=== PATIENT | female | born 1985 | race Two or more races ===

== ENCOUNTER → 2025-06-19 | Outpatient (CLI) | payer BC, MEDICAID, SELFPAY ==
--- NOTE | 2025-06-19 10:01 | XR_ITS ---
Examination: Cervical spine 4 views Technique one AP, lateral, swimmer's lateral, coned AP odontoid cervical spine 4 views Date and time: June 19, 2025 1005 hours INDICATIONS: Neck pain beginning 2 months ago. FINDINGS: Adequate alignment cervical vertebral bodies. No cervical fracture. Intact odontoid. No cervical disc narrowing IMPRESSION: Negative examination
--- NOTE | 2025-06-19 10:01 | XR_ITS ---
Examination: Shoulder bilateral, 6 views Technique: Shoulder AP internal rotation, AP external rotation, Y view shoulder each shoulder total 6 views Exam date and time :June 19, 2025 1005 hours INDICATIONS: Bilateral shoulder pain beginning 2 months ago. FINDINGS: No shoulder fractures or dislocations Mild bilateral narrowing glenohumeral joints Mild bilateral osteoarthritis acromioclavicular joints Negative for shoulder calcific tendinitis IMPRESSION: Mild bilateral narrowing glenohumeral joints
[2025-06-19 11:41] LABS: Glucose Estimated Average 120 mg/dL (80-131); Hemoglobin A1C 5.8 % Hgb (4.8-6.0)
[2025-06-19 11:42] LABS: Basophils # (Auto) 0.1 Thou/mm3 (0.0-0.2); Basophils % (Auto) 1 % (0-2.5); Eosinophils # (Auto) 0.2 Thou/mm3 (0.0-0.5); Eosinophils % (Auto) 5 % (0-10); Hematocrit 39.9 % (36.0-46.0); Hemoglobin 13.2 g/dL (12.0-16.0); Immature Granulocytes Auto 0.02 Thou/mm3 (0.00-0.00); Lymphocytes # (Auto) 1.9 Thou/mm3 (1.0-4.8); Lymphocytes % (Auto) 38 % (10-50); Mean Corpuscular HGB Conc 33.1 g/dl (31.0-37.0); Mean Corpuscular Hemoglobin 30.8 pg (25.0-35.0); Mean Corpuscular Volume 93 fL (80-100); Monocytes # (Auto) 0.4 Thou/mm3 (0.0-0.8); Monocytes % (Auto) 7 % (0-12); Neutrophils # (Auto) 2.5 Thou/mm3 (1.8-7.7); Neutrophils % (Auto) 49 % (37-80); Nucleated Red Blood Cell # 0.00 Thou/mm3 (0.00-0.00); Nucleated Red Blood Cell % 0 /100 WBC (0); Platelet Count 379 Thou/mm3 (140-440); RDW Standard Deviation 42.9 fL (36.4-46.3); Red Blood Count 4.28 Miln/mm3 (4.00-5.20); White Blood Count 5.1 Thou/mm3 (3.6-11.0)
[2025-06-19 11:45] LABS: Follicle Stimulating Hormone 7.93 mIU/mL (See Note); Vitamin B12 1377 pg/mL (211-911); Vitamin D 25 Hydroxy Total 19.4 ng/mL (7.3-40.2)
[2025-06-19 11:49] LABS: Alanine Aminotransferase 61 U/L (10-49); Albumin, Serum 4.3 gm/dL (3.5-5.0); Albumin/Globulin Ratio 1.5 (1.2-2.2); Alkaline Phosphatase 84 U/L (46-116); Anion Gap 10 (7-16); Aspartate Amino Transferase 51 U/L (0-34); BUN/Creatinine Ratio 16 Ratio (12-20); Bilirubin,Total 0.4 mg/dL (0.3-1.2); Blood Urea Nitrogen 11 mg/dL (9-23); Calcium 8.8 mg/dL (8.3-10.6); Calcium (Corrected) 8.8 mg/dL (8.5-10.1); Carbon Dioxide 24.5 mMol/L (20.0-31.0); Cardiac Risk Estimate 2.9 RATIO (3.7-5.6); Chloride 106 mMol/L (98-107); Cholesterol 189 mg/dL (132-200); Creatinine (Component) 0.7 mg/dL (0.6-1.3); Free T4 (Free Thyroxine) 1.03 ng/dL (0.89-1.76); Globulin 2.8 gm/dL (2.3-3.5); Glucose 95 mg/dL (74-106); HDL Cholesterol 65 mg/dL (40-60); LDL Cholesterol,Calculated 94 mg/dL (0-130); Osmolality,Calculated 278 (275-295); Potassium 4.4 mMol/L (3.4-5.1); Sodium 140 mMol/L (136-145); Thyroid Stimulating Hormone 1.12 uIU/mL (0.55-4.78); Total Protein 7.1 gm/dL (5.7-8.2); Triglycerides 149 mg/dL (30-150); Uric Acid 4.1 mg/dL (3.1-7.8); eGFR > 60 See Note
[2025-06-19 12:04] LABS: Sed Rate (ESR) 9 mm/hr (0-20)
[2025-06-19 15:16] LABS: RA Screen Negative (Negative)
[2025-06-26 06:24] LABS: ANA Screen, IFA POSITIVE (NEGATIVE); ANA Titer 1:1280 titer; DHEA Sulfate* 86 mcg/dL (19-231); Luteinizing Hormone* 4.9 mIU/mL
== END | disposition home or self-care (01) ==
LOC: CDIM 09:21 → COPL 10:40
PROVIDERS: PCP Physician Assistant; Referring Provider Physician Assistant; Visit Provider Radiology Diagnostic Radiology
DX: M54.2 Cervicalgia (principal); M25.812 Other specified joint disorders, left shoulder; M25.811 Other specified joint disorders, right shoulder; N93.9 Abnormal uterine and vaginal bleeding, unspecified; R53.83 Other fatigue; Z13.220 Encounter for screening for lipoid disorders
CPT/HCPCS: 36415; 72040; 73030; 80053; 80061; 82306; 82607; 82627; 83001; 83002; 83036; 84439; 84443; 84550; 85025; 85652; 86038; 86430

== ENCOUNTER → 2025-07-09 | Outpatient (CLI) | payer BC, MEDICAID, SELFPAY ==
[2025-07-09 15:08] LABS: Hepatitis A Antibody IgM Non Reactive (Non React); Hepatitis B Core Antibody IgM Non Reactive (Non React); Hepatitis B Surface Antigen Non Reactive (Non React); Hepatitis C Antibody Non Reactive (Non React)
[2025-07-16 06:34] LABS: Folate, RBC* 617 ng/mL RBC (>280); Homocysteine* 9.4 umol/L (< OR = 11.0); Methylmalonic Acid, GC/MS/MS* 91 nmol/L (55-335)
== END | disposition home or self-care (01) ==
PROVIDERS: PCP Physician Assistant; Referring Provider Physician Assistant; Visit Provider Physician Assistant
DX: R74.8 Abnormal levels of other serum enzymes (principal); R79.89 Other specified abnormal findings of blood chemistry
CPT/HCPCS: 36415; 80074; 82747; 83090; 83921

== ENCOUNTER → 2025-08-07 | Outpatient (CLI) | payer BC, MEDICAID, SELFPAY ==
--- NOTE | 2025-08-07 14:30 | XR_ITS ---
Examination: Ultrasound soft tissue extremity left shoulder TECHNIQUE: Grayscale sonographic images soft tissue left shoulder Date and time: August 07, 2025 1442 hours INDICATIONS: Palpable lump in the left shoulder and swelling beginning one month ago. FINDINGS: No cystic or solid mass depicted IMPRESSION: No cystic or solid mass depicted
== END | disposition home or self-care (01) ==
LOC: CDIM 14:18
PROVIDERS: PCP Physician Assistant; Referring Provider Physician Assistant; Visit Provider Physician Assistant
DX: R22.32 Localized swelling, mass and lump, left upper limb (principal)
CPT/HCPCS: 76882

== ENCOUNTER → 2025-08-24 | Outpatient (CLI) | payer BC, MEDICAID, SELFPAY ==
--- NOTE | 2025-08-24 11:00 | XR_ITS ---
Examination: Abdomen sonogram, Limited Date and time of exam: August 24, 2025, 1116 hours INDICATIONS: Elevated liver enzymes on laboratory examination June 19, 2025. Technique: Real-time chin scale transabdominal sonographic images of the upper abdomen obtained. Findings: Contracted gallbladder, gallbladder wall is thickened 0.5 cm no stones Common bile duct 0.4 cm Pancreatic head 2.5 cm Liver 15.3 cm solid lesion in the mid right lobe the liver 3.2 x 1.8 x 2.0 cm Normal hepatopedal portal venous flow Patent IVC IMPRESSION: Recommend repeat gallbladder study with better fasting Recommend MRI abdomen follow-up pre and postcontrast to assess the 3.2 x 1.8 x 2.0 cm right lobe liver lesion, differential including hepatic metastasis
== END | disposition home or self-care (01) ==
PROVIDERS: PCP Physician Assistant; Referring Provider Physician Assistant; Visit Provider Physician Assistant
DX: K76.9 Liver disease, unspecified (principal)
CPT/HCPCS: 76705

== ENCOUNTER 2025-11-14 18:58 | Emergency (ER) | payer BC, MEDICAID, SELFPAY ==
[2025-11-14 18:59] VITALS: BMI 26.9
[2025-11-14 19:40] VITALS: BP 127/85; PULSE 62; RESP 18; TEMP 36.6; O2SAT 98
--- NOTE | 2025-11-14 19:44 | XR_ITS ---
EXAMINATION: Cervical spine 3 views TECHNIQUE: AP lateral coned AP odontoid cervical spine 3 views Date and time: November 14, 2025, 1958 hours INDICATIONS: Neck pain beginning 1 week ago. FINDINGS: Reversal normal cervical lordosis which may relate to muscle spasm No acute fracture Intact odontoid No cervical disc narrowing IMPRESSION: No cervical fracture, no cervical disc narrowing
--- NOTE | 2025-11-14 20:50 | PD.EDNECK ---
ED Neck Injury Pain RME/HPI General Chief Complaint: Neck Pain/Injury Stated Complaint: NECK PAIN X2 DAYS, BILAT. EAR PAIN & HAX1 WEEK, Time Seen by Provider: 11/14/25 19:25 Arrival date/time: 11/14/25 18:58 This is a case of 40-year-old female with no medical history came into the emergency room due to pain on the posterior cervical area on and off for 2 days patient denies any injury or trauma denies any numbness weakness or tingling sensation pain is sharp radiating to the posterior aspect of the head but no neck stiffness patient also complaining of bilateral ear pain with sore throat no other symptoms noted Limitations: no limitations Related Data Previous Rx's ?Medication ?Instructions ?Recorded cephalexin 500 mg capsule 500 mg PO BID #14 caps 05/27/23 methylprednisolone 4 mg tablets in 4 mg PO .as directed #21 tabs 05/27/23 a dose pack (Medrol (Mario)) amoxicillin 875 mg-potassium 1 tab PO BID #20 tabs 11/14/25 clavulanate 125 mg tablet cyclobenzaprine 10 mg tablet 10 mg PO BID PRN muscle spasm #10 11/14/25 tabs ibuprofen 600 mg tablet 600 mg PO Q8H PRN pain #20 tabs 11/14/25 ofloxacin 0.3 % ear drops 5 drp otic (ear) BID 7 days #10 mL 11/14/25 Allergies Allergy/AdvReac Type Severity Reaction Status Date / Time No Known Allergies Allergy Verified 11/14/25 19:02 Review of Systems Review of Systems Systems Reviewed: All systems reviewed, normal except as documented Past Medical History Past Medical History NEUROLOGIC: Negative Neurological Disorders, Seizures or Head Trauma CARDIAC: Negative Cardiac Disorders, Congestive Heart Failure, Edema or Cellulitis (BRUISING TO LEONARD ARMS DUE TO IV STICK FROM ER) RESPIRATORY: Negative Chronic Obstructive Pulmonary Disease (COPD), Tuberculosis, Pulmonary Embolism or Sleep Apnea GASTROINTESTINAL: Negative Gastrointestinal Disorders, Hepatitis or Colorectal Cancer GENITOURINARY: Negative Genitourinary Disorders or Renal Disease REPRODUCTIVE: Positive Previous Pregnancies (X6); Negative Breast Cancer MUSCULOSKELETAL: Negative Musculoskeletal Disorders or Bone Cancer ENT: Negative Head Trauma ENDOCRINE: Negative Endocrine Disorders, Diabetes Mellitus Type 1 or Diabetes Mellitus Type 2 HEMATOLOGIC: Positive Anemia; Negative Blood Disorders OTHER HISTORY: Positive Chicken Pox; Negative Hospitalization, Autoimmune Disease, Shingles, Falls, Blood Transfusions, Anesthesia Reactions, Chemotherapy, MRSA, VRSA, Vancomycin-Resistant Enterococci, Measles, Mumps, Breast Cancer, Cervical Cancer, Colorectal Cancer, Lung Cancer or Ovarian Cancer Family History FAMILY HISTORY: Negative Family Psychiatric Problems, Family Respiratory Disorders, Family Cardiac Disorders, Family Gastrointestinal Problems, Family Cancer, Family Surgery or Family Anesthesia Reaction Surgical History SURGICAL: Negative Pacemaker Social History SMOKING STATUS: Never smoker ED Exam General Limitations: Present no limitations General appearance: Present alert, in no apparent distress and other (Patient is awake alert oriented not in distress nontoxic looking well-hydrated well nourished) Head Head exam: Present atraumatic, normocephalic and normal inspection Eye Eye exam: Present normal appearance, PERRL, EOMI and other (PERRL EOM intact normal conjunctiva no pappiledema) ENT ENT exam: Present normal exam, normal oropharynx, mucous membranes moist and other (Bilateral ear canal red tender but no swelling no mastoid tenderness bilaterally tympanic membrane noted bilateral red retracted bulging but not perforated nose and throat exam is) Neck Neck exam: Present normal inspection, full ROM, trachea midline and tenderness (Mild tenderness posterior cervical area no crepitation no deformity no paraspinal no paravertebral tenderness ROM intact neurovascular negative meningeal sign); Absent meningismus, lymphadenopathy or thyromegaly Chest Chest inspection: Present normal inspection and symmetric chest wall rise; Absent tenderness, rash or abscess Respiratory Respiratory exam: Present normal lung sounds bilaterally Cardiovascular Cardiovascular exam: Present regular rate, normal rhythm and normal heart sounds Abdominal Exam Abdominal exam: Present soft and normal bowel sounds Extremities Exam Extremities exam: Present normal inspection and full ROM Back Exam Back exam: Present normal inspection and full ROM; Absent tenderness, CVA tenderness (R), CVA tenderness (L), muscle spasm, paraspinal tenderness, vertebral tenderness, rashes, sciatic notch tenderness (R), sciatic notch tenderness (L), straight leg raise (R) or straight leg raise (L) Neurological Exam Neurological exam: Present alert, oriented X3, CN II-XII intact and other (Patient is awake alert oriented x 4 no focal deficit GCS 15 of 15 steady gait memory intact no slurring speech no facial droop motor or sensory reflex are all normal in all extremities negative) Psychiatric Psychiatric exam: Present normal affect and normal mood Skin Skin exam: Present warm, dry, intact, normal color and other (Excellent skin turgor) Course Quality Measures none Orders Category Date Time Status Bedside STREP Test NOW Care 11/14/25 19:44 Active XR cervical spine 2-3V Stat Exams 11/14/25 19:44 Completed Amoxicillin/Pot Clav 875 [Augmentin 875] Med 11/14/25 20:46 Discontinued 1 tab PO X1 ONE Ketorolac Inj [Toradol Inj] Med 11/14/25 20:46 Discontinued 30 mg IM X1 ONE dexAMETHasone INJ [Decadron Inj] Med 11/14/25 20:46 Discontinued 10 mg IM X1 ONE Vital Signs Vital signs: Vital Signs Temperature 98 F 11/14/25 19:40 Pulse Rate 62 11/14/25 19:40 Respiratory Rate 18 11/14/25 19:40 Blood Pressure 127/85 H 11/14/25 19:40 Pulse Oximetry (%) 98 11/14/25 19:40 Oxygen Delivery Method Room Air 11/14/25 19:40 Oxygen saturation is 98% room air Neck Pain MDM Narrative MDM Narrative:: This is a case of 40-year-old female with no medical history came into the emergency room due to pain on the posterior cervical area on and off for 2 days patient denies any injury or trauma denies any numbness weakness or tingling sensation pain is sharp radiating to the posterior aspect of the head but no neck stiffness patient also complaining of bilateral ear pain with sore throat no other symptoms noted physical exam showed patient is awake alert oriented not in distress nontoxic looking well-hydrated well-nourished BP stable not tachycardic not tachypneic afebrile and nonhypoxic patient noted to have mild tenderness on the posterior cervical area no crepitation no deformity no paraspinal no paravertebral tenderness ROM is intact negative for meningeal sign no redness no cellulitis neurovascular intact awake alert oriented x 4 no focal deficit GCS 15/15 steady gait memory intact no slurring speech no facial droop motor or sensory reflex in all extremities were normal negative Babinski patient noted to have bilateral tympanic membrane red bulging but not perforated ear canal were red mild tenderness but no discharge no mastoid tenderness bilaterally throat exam is normal rapid strep is negative cervical x-ray showed no fracture no dislocation but with straightening straightening of the cervical bone digestive of neck muscle spasm patient was given Toradol here in the emergency room and dexamethasone for neck pain which improved and resolved the pain patient was also started on Augmentin for otitis media patient will follow-up with PCP in 2 days for reevaluation for any worsening symptoms or any emergent concern return precaution in the emergency room was advised no signs and symptoms of cauda equina Patient was discharged with comfortable condition walking with stable gait. Patient verbalized no further complains explained diagnosis and answered patient question. Patient is comfortable with the proposed management plan including the need to follow up with his/her primary care physician and any specialist if applicable Discussed patient for any urgent condition or worsening sx, He/She needed to go to emergency room immediately or call 911. Patient acknowledge the responsibility to follow up as instructed and to monitor her/his symptoms. For any persistence of the symptoms for more than 3-5 days return precaution advised. Discussed the result of the test and was given printed discharge instruction Patient data External records reviewed:: [facility] previous records Clinical information provided by:: patient Social determinants that could affect healthcare access:: none Patient has the following chronic illnesses:: None How is presenting disease/condition affected by chronic disease/condition?: no chronic disease Evaluation data The following diagnostics were reviewed and interpreted by me:: lab results and radiology exam(s) Lab and/or radiology exams considered but not ordered:: Reviewed Interpretation Summary: Reviewed Medications / Prescriptions Medications or Prescriptions considered but not ordered:: Given Medication administrations:: Medication Administration History Discontinued Medications Amoxicillin/Clavulanate Potassium (Amoxicillin/Pot Clav 875 Tablet) 1 tab PO X1 ONE Stop: 11/14/25 20:47 Dexamethasone Sodium Phosphate (Dexamethasone Sod Phos Inj 10 Mg/Ml Vial) 10 mg IM X1 ONE Stop: 11/14/25 20:47 Ketorolac Tromethamine (Ketorolac Inj 60 Mg/2 Ml Vial) 30 mg IM X1 ONE Stop: 11/14/25 20:47 Given Consultations Consultation(s) initiated? (list below): No Diagnosis Neck Differential Diagnosis: cervical spondylosis, strain of neck muscle and other (Herniated disc DDD) Most likely diagnosis given after review of the tests above:: Neck muscle spasm Admission Indicated Admission indicated?: not indicated Explain why admission is indicated or not indicated:: Not indicated Admission Request Was there a request for admission?: No Admission Attestation Admission request attestation: None Disposition Plan Disposition Plan: Discharge Discharge Attestation Discharge Attestation: The patient and all family members were given an opportunity to ask questions and understood the discharge instructions. Discharge instructions specifically effects, indications for sooner follow up or return to the emergency department, and the expected course of current diagnosis. Patient condition: Stable Discharge Plan Plan Patient Disposition: HOME (Self Care) Patient condition on transfer: Stable Prescriptions/Referrals Prescriptions/Med Rec: New amoxicillin-pot clavulanate 875-125 mg tablet 1 tab PO BID Qty: 20 0RF cyclobenzaprine 10 mg tablet 10 mg PO BID PRN (Reason: muscle spasm) Qty: 10 0RF ofloxacin 0.3 % drops 5 drp otic (ear) BID 7 Days Qty: 10 0RF ibuprofen 600 mg tablet 600 mg PO Q8H PRN (Reason: pain) Qty: 20 0RF No Action cephalexin 500 mg capsule 500 mg PO BID Qty: 14 0RF methylprednisolone [Medrol (Mario)] 4 mg tablets,dose pack 4 mg PO .as directed Qty: 21 0RF Problem List Clinical Impression: Otitis media, Acute pharyngitis, Neck muscle spasm Patient/Caregiver Discharge Instructions Education Materials: When You Have a Sore Throat, ED Muscle Spasm, ED Neck Spasm, No Trauma, ED Otitis Media Antibiotic ... Additional Instructions: Follow-up with your primary care physician in 2 days for reevaluation and if symptoms persist needs to see a orthopedic surgeon for MRI of the neck to rule out herniated disc recurrence persistent worsening symptoms or any emergent concerns such as numbness weakness tingling sensation return to the emergency room immediately or call 911 take your medication as directed finish the course of antibiotic warm saline gargle is advised no Q-tips no cotton balls prevent water to enter both ears as advsied Print Language: Belgian Stand Alone Forms: Ramila Award Info., Patient Portal Info Letter PA/ACCOUNTING PROFESSOR Supervising Physician PA/ACCOUNTING PROFESSOR Supervising Physician: Dr. Ila Lozoya
[2025-11-14] MEDS: AMOXICILLIN/POT CLAV 875 TABLET 1 TAB PO (21:27)
[2025-11-14] MEDS: KETOROLAC INJ 60 MG/2 ML VIAL 30 MG IM (21:28)
== END 2025-11-14 21:34 | disposition home or self-care (01) ==
LOC: SERX 21:54
PROVIDERS: Emergency Provider Emergency Medicine
DX: H66.93 Otitis media, unspecified, bilateral (principal); J02.9 Acute pharyngitis, unspecified; M62.838 Other muscle spasm
CPT/HCPCS: 72040; 87651; 96372; 99283; J1100; J1885; A9270

== ENCOUNTER → 2025-11-14 | Outpatient (CLI) | payer BC, MEDICAID, SELFPAY ==
[2025-11-11 12:08] LABS: HCG Qualitative,Urine Negative
--- NOTE | 2025-11-14 12:00 | XR_ITS ---
Examination: MRI abdomen with intravenous contrast. MRI abdomen without intravenous contrast. Date and time of exam: November 14, 2025, 1405 hours INDICATIONS: Nausea with eating beginning 5 months ago, abdomen sonogram August 24, 2025 solid lesion mid right lobe of the liver 3.2 x 1.8 x 2.0 cm Technique: Multiple axial, sagittal and coronal sections of the abdomen obtained. Transverse images, TR 6020, TE 107. T1 weighted transverse images, TR 582, TE 9.5. T2-weighted sagittal images, TR 4000, TE 105. T2-weighted sagittal images, TR 4000, TE 5. Coronal images, TR 4210, TE 107. Axial and coronal images are obtained post 1919 cc gadolinium FINDINGS: Precontrast images do not demonstrate convincing liver lesion Images post intravenous administration 19 cc gadolinium demonstrate no abnormal enhancing lesions No gallstones No pancreatic or splenic mass No hydronephrosis Aorta normal size No ascites Impression: No abnormal enhancing liver lesions noted Recommend repeat hepatic sonography with a radiologist in attendance
== END | disposition home or self-care (01) ==
PROVIDERS: PCP Physician Assistant; Referring Provider Physician Assistant; Visit Provider Physician Assistant
DX: K76.9 Liver disease, unspecified (principal); Z32.00 Encounter for pregnancy test, result unknown
CPT/HCPCS: 74183; 81025; A9577